=== PATIENT | male | born 1970 | race Caucasian/White ===

== ENCOUNTER → 2020-06-03 11:33 | Outpatient (CLI) | payer OTHER, SELFPAY ==
--- NOTE | ~2020-06-03 | XR_ITS ---
XR ankle LT 2V DATE: 06/03/2020 11:50 INDICATION: Left foot pain. Horse fell on foot. TECHNIQUE: 4 views COMPARISON: None FINDINGS: There is a linear oblique intra-articular fracture of the medial malleolus. The lateral mal leolus and posterior malleolus appear intact and the ankle mortise appears preserved. IMPRESSION: Medial malleolar fracture Reviewed, dictated and finalized at location A. IMPRESSION: Medial malleolar fracture
== END ==
PROVIDERS: PCP Family Medicine; Visit Provider Nurse Practitioner Family
DX: S82.55XA Nondisplaced fracture of medial malleolus of left tibia, initial encounter for closed fracture (principal); X58.XXXA Exposure to other specified factors, initial encounter
CPT/HCPCS: 73600

== ENCOUNTER 2020-06-10 15:25 | Outpatient (CLI) | payer OTHER, SELFPAY ==
--- NOTE | 2020-06-10 16:00 | ECG_ITS ---
Measurements Intervals [place] Rate: 66 P: 6 OH: 146 QRS: -34 QRSD: 105 T: 20 QT: 380 QTc: 401 Interpretive Statements SINUS RHYTHM WITH SINUS ARRHYTHMIA LEFT AXIS DEVIATION DELAYED PRECORDIAL R/S TRANSITION BORDERLINE ECG Electronically Signed On 06-10-2020 16:15:38 CDT by Dipesh Cottrell D.O.
== END 2020-06-10 15:26 | disposition home or self-care (01) ==
PROVIDERS: Visit Provider Family Medicine
DX: Z01.818 Encounter for other preprocedural examination (principal); R94.31 Abnormal electrocardiogram [ECG] [EKG]
CPT/HCPCS: 93005

== ENCOUNTER → 2021-03-11 06:47 | Outpatient (CLI) | payer OTHER, SELFPAY ==
[2021-03-11 23:43] LABS: SARS-CoV-2 RNA PCR Negative
== END ==
PROVIDERS: Visit Provider Family Medicine
DX: Z20.822 Contact with and (suspected) exposure to COVID-19 (principal); R50.9 Fever, unspecified; R05 Cough
CPT/HCPCS: C9803; U0003; U0005

== ENCOUNTER → 2021-04-17 16:04 | Outpatient (CLI) | payer OTHER, SELFPAY ==
--- NOTE | ~2021-04-17 | XR_ITS ---
EXAMINATION: XR chest 2V 04/17/2021 16:36 INDICATION: Cough PROCEDURE: 2 view chest COMPARISON: No prior studies for comparison. FINDINGS: The lungs are clear. The cardiomediastinal silhouette is within normal limits. There are no pleural effusions. There is no pneumothorax suspected. IMPRESSION: 1: NO ACUTE CARDIOPULMONARY DISEASE. Reviewed, dictated and finalized at location A.
== END ==
PROVIDERS: Visit Provider Nurse Practitioner Family
DX: R05 Cough (principal)
CPT/HCPCS: 71046